=== PATIENT | male | born 1970 | race Caucasian/White ===

== ENCOUNTER 2017-08-12 11:23 | Outpatient (CLI) | payer OTHER ==
--- NOTE | 2017-08-12 12:34 | RAD ---
ABDOMEN ONE VIEW: History: Abdominal pain. Comparison: None. FINDINGS: There are five non-rib bearing lumbar type vertebrae. Phleboliths are present in the pelvis. No dilated loops of large or small bowel. Evaluation of free air is limited without upright exam. 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 IMPRESSION: No acute intraabdominal abnormality. POS: [facility]
== END 2017-08-12 11:24 | disposition home or self-care (01) ==
LOC: RAD-FRANK 11:23
PROVIDERS: ATTEND Nurse Practitioner Family
DX: R10.9 Unspecified abdominal pain (principal)
CPT/HCPCS: 74018